=== PATIENT | female | born 1995 | race Caucasian/White ===

== ENCOUNTER 2017-05-02 07:16 | Emergency (ER) | payer OTHER ==
[2017-05-02 07:32] VITALS: BP 135/75; BMI 24.9
--- NOTE | 2017-05-02 07:59 | DR.GENAD ---
HPI - PCP Primary Care Physician: nfd - HPI Comment HPI Comment: GETTING WORSE. - Complaint/Symptoms Chief Complaint Doctors Comments: FEVER, BODY ACHES AND EAR ACHE AND SORE THROAT TIMES 3 DAYS. Chief Complaint:: Patient c/o right ear throbbing, sore throat generalized body aches, and fever for several days. Patient states "temp has been 103. I have been taking aleve." Self Treatment fo Chief Complaint: Aleve at 0530 - Nurses notes reviewed Nurses Notes Review: Yes - Source History Provided: Patient - Mode of Arrival Mode of Arrival: Ambulatory - Timing Onset of Chief Complaint: 04/29/17 Came on: Suddenly - Duration Duration: Constant Duration: Days - Severity Severity: Moderate PMH - PMH Past Medical History: No Past Surgical History: Yes Past Surgical History Comment: tubal - Family History History of Family Medical Conditions: Yes Family Medical History: Diabetes Mellitus, Hypertension - Social History Does patient currently use any type of tobacco product: No Have you used tobacco products in the last 12 months: No Type of Tobacco Use: None Does any household member use tobacco: No Alcohol Use: None Do you use any recreational Drugs:: No Lives With: Family Lives Where: Home - infectious screening In the last 2 months have you had wt loss of >10#?: NO Have you had fever, night sweats or hemotysis?: No Have you traveled outside the country in the last 6 months?: No Isolation: Standard ROS - Review of Systems Constitutional: Fever, Weakness, Fatigue Eyes: negative: Eye Pain, Discharge ENTM: Ear Pain, Nose Discharge, Nose Congestion, Throat Pain Respiratoy: Non-Productive Cough. negative: Short of Breath, Wheezing, Hemoptysis Cardiovascular: No Symptoms Reported Gastrointestinal/Abdominal: No Symptoms Reported Genitourinary: No Symptoms Reported Neurological: No Symptoms Reported Musculoskeletal: No Symptoms Reported, Muscle Pain Integumentary: No Symptoms Reported Hematologic/Lymphatic: No Symptoms Reported Endocrine: No Symptoms Reported All Other Systems: Reviewed and Negative PE - Vital Signs Vitals: Temperature 98.7 F Pulse Rate 108 Respiratory Rate 17 Blood Pressure 135/75 O2 Sat by Pulse Oximetry 100 - General Limitations: No Limitations General Appearance: Alert - Head Head Exam: Normal Inspection - Eyes Eye exam: Normal Appearance - ENT ENT Exam: negative: Normal Oropharynx (THROAT RED. TONSIL ENLARGE.), TM's Normal Bilaterally (TM INFLAME.) External Ear Exam: Normal External Inspection TM/Canal Exam: Bilateral Erythema, Bilateral Canal Tenderness Nose Exam: Normal Nose Exam Mouth Exam: Normal Inspection Throat Exam: Tonsillar Erythema, Tonsillomegaly. negative: Tonsillar Exudate - Neck Neck Exam: Trachea Midline - Chest Chest Inspection: Symmetric Chest Wall Rise - Respiratory Respiratory Exam: Normal Lung Sounds Bilat Respiratory Exam: Bilateral Clear to Auscultation - Cardiovascular Cardiovascular Exam: Regular Rate, Normal Rhythm, Normal Heart Sounds - Abdominal Exam Abdominal Exam: Normal Inspection - Extremities Extremities Exam: Normal Inspection - Back Back Exam: Normal Inspection - Neurologic Neurological Exam: Alert, Oriented X3 - Psychiatric Psychiatric Exam: Normal Affect, Normal Mood - Skin Skin Exam: Normal Color MDM - Differential Diagnosis Differential Diagnosis: OTITIS MEDIS, STREP THROAT, BRONCHITIS, SINUSITIS Course - Treatment Treatment: SEE ORDERS. - Education/Counseling Education/Counseling: Patient, Education Educated On: Diagnosis, Needs for Follow Up ROR - Labs Reviewed Laboratory Results Reviewed?: Yes - Diagnosis Discharge Problem: Strep pharyngitis Otitis media Qualifiers: Otitis media type: suppurative Chronicity: acute Laterality: bilateral Recurrence: not specified as recurrent Spontaneous tympanic membrane rupture: without spontaneous rupture Qualified Code(s): H66.003 - Acute suppurative otitis media without spontaneous rupture of ear drum, bilateral - Discharge Plan Condition: Stable Prescriptions: Azithromycin [ZITHROMAX Tab 250 mg *] 1 dose PO DAILY #6 tab Ibuprofen [MOTRIN TAB 600 MG *] 600 mg PO TID PRN #30 tab PRN Reason: Pain/Inflammation - Follow ups/Referrals Follow ups/Referrals: [facility],None [Primary Care Provider] - 3 days - Instructions Instructions: Otitis Media, Adult, [id number], Strep Throat, [id number] Additional Instructions: RETURN TO ED IF WORSE.
[2017-05-02] MEDS ORDERED: TORADOL 60 MG VIAL IM ONE (08:09)
[2017-05-02] MEDS ORDERED: TORADOL 60 MG VIAL ONE (08:15)
[2017-05-02] MEDS ORDERED: BICILLIN L-A IM ONE ×2 (08:32→08:39)
== END 2017-05-02 09:08 | disposition home or self-care (01) ==
LOC: ER 07:16
DX: H66.003 Acute suppurative otitis media without spontaneous rupture of ear drum, bilateral (principal); J02.0 Streptococcal pharyngitis
CPT/HCPCS: 87651; 96372; 99282; J0570; J1885